=== PATIENT | female | born 1965 | race African-American/Black ===

== ENCOUNTER → 2016-09-23 | Day surgery (SDC) | payer OTHER ==
[~2016-09-23] MED LIST: ADVAIR 1001 DISK W/D PO; ALBUTEROL MININEB NEB; ALBUTEROL17 GM INH; COMBIVENT INH14.7 GM INH; FLEXERIL10 MG PO; FLOVENT HFA12 GM INH; LEXAPRO20 MG DOB; NAPROXEN500 M1 PO; PRILOSEC PO; SINGULAIR PO; ZOLOFT50 MG PO
--- NOTE | ~2016-09-23 | OR ---
Unit #: [id number] #: [id number] Patient: MAGDI ESQUIVEL [id number] [address] [place], [place] [address] [id number] O MR#: [id number] NAME: MAGDI ESQUIVEL. ROOM: Date of Procedure: 09/23/2016 Admission Date: 09/23/2016 Surgeon: Haile Christopher M.D. : 1965 Attending Physician: Haile Christopher M.D. Referring Physician: Haile Christopher M.D. Primary Care Physician: Deangelo Carnes M.D. OPERATIVE REPORT PREOPERATIVE DIAGNOSIS Screening colonoscopy. POSTOPERATIVE DIAGNOSIS 0.2 cm polyp at the hepatic flexure. PROCEDURE PERFORMED 1. Colonoscopy to cecum. 2. Cold excisional biopsy of colonic polyp x1. ANESTHESIA IV sedation. COMPLICATIONS None. INDICATIONS FOR PROCEDURE The patient is a 51-year-old, who presents for screening colonoscopy. DESCRIPTION OF PROCEDURE The patient was taken to the operating theater and placed in left lateral decubitus position. IV sedation was initiated. Digital rectal exam was normal. Colonoscope was then passed under direct vision and navigated to the cecum. The patient had excellent prep. I identified one small polyp 0.2 cm at the hepatic flexure. This was removed with excisional biopsy. Hemostasis was adequate. I saw no other abnormalities. She tolerated the procedure well and sent to recovery room in good condition. PLAN We will follow up on biopsy. Likely require repeat colonoscopy at 5 years. Dictated by... Siddhartha Miranda/rosendo TD: 09/23/2016 13:51 JOB #: [id number] Unit #: [id number] #: [id number] Patient: MAGDI ESQUIVEL OPERATIVE REPORT Page 1 of 1 X Haile Christopher MD X PROCEDURE OPERATIVE NOTE
== END | disposition home or self-care (01) ==
LOC: COPS 11:17
DX: Z12.11 Encounter for screening for malignant neoplasm of colon (principal); D12.3 Benign neoplasm of transverse colon; J45.909 Unspecified asthma, uncomplicated; F41.9 Anxiety disorder, unspecified; Z88.5 Allergy status to narcotic agent; Z98.890 Other specified postprocedural states; Z91.040 Latex allergy status; Z79.899 Other long term (current) drug therapy
CPT/HCPCS: 88305; J2250